=== PATIENT | female | born 1970 | race Caucasian/White ===

== ENCOUNTER 2024-04-21 15:35 | Outpatient (REF) | payer OTHER, SELFPAY ==
[2024-04-21 18:40] LABS: MANUAL DIFF FLAG NO
[2024-04-21 18:55] LABS: Basophils Percent Auto 0.1 % (0-2); Hematocrit 39.8 % (37.0-47.0); Hemoglobin 13.6 g/dl (12.0-16.0); Imm Gran Abs Auto 0.05 X10*3/uL (0.00-0.03); Imm Gran Pct Auto 0.4 % (0.0-0.4); Lymphocytes Absolute Auto 0.8 X10*3/uL (1.2-4.9); Lymphocytes Percent Auto 6.7 % (20-40); Mean Corpuscular HGB Conc 34.2 g/dl (31.0-35.0); Mean Corpuscular Hemoglobin 31.2 pg (27.0-33.0); Mean Corpuscular Volume 91.3 fL (80.0-98.0); Mean Platelet Volume 11.7 fL (9.4-12.3); Monocytes Absolute Auto 0.4 X10*3/uL (0.1-1.2); Monocytes Percent Auto 3.2 % (2-11); Neutrophils Percent Auto 89.6 % (45-73); Platelet Count 333 X10*3/uL (160-400); Red Blood Count 4.36 X10*6/uL (4.20-5.50); Red Cell Distribution Width 13.6 % (11.0-16.0); White Blood Count 12.3 X10*3/uL (4.8-10.8)
[2024-04-21 19:17] LABS: Alanine Aminotransferase 23 U/L (0-31); Albumin Level 4.9 g/dL (3.5-5.0); Alkaline Phosphatase 80 U/L (39-117); Anion Gap 19 (12-20); Aspartate Amino Transferase 21 U/L (5-31); Bilirubin Total 0.3 mg/dL (0.0-1.0); Blood Urea Nitrogen 13 mg/dL (9-16); Calcium 10.6 mg/dL (8.4-10.2); Carbon Dioxide 20 mmol/L (22-29); Chloride 105 mmol/L (96-108); Estimated Glomerular Filt Rate > 60; Glucose Random 194 mg/dL (60-115); Iron 86 mcg/dL (30-160); Percent Iron Saturation 28 % (15-50); Potassium 3.7 mmol/L (3.3-5.1); Sodium 140 mmol/L (135-145); Total Iron Binding Capacity 309 mcg/dL (228-428); Total Protein 7.8 g/dL (6.5-8.0); Unsaturated Iron Binding 223 ug/dL
[2024-04-21 19:22] LABS: Ferritin 158 ng/mL (10-250); Free T4 (Free Thyroxine) 0.98 ng/dL (0.71-1.85); Thyroid Stimulating Hormone 0.32 uIU/mL (0.32-4.0); Vitamin D 25-OH Total 48.3 ng/mL (>30)
[2024-04-21 19:36] LABS: Folate 5.8 ng/mL (> or = 4.0); Vitamin B12 193 pg/mL (200-900)
[2024-04-22 18:44] LABS: Thyroid Peroxidase Antibodies <1 IU/mL (<9)
[2024-04-27 06:32] LABS: Thyroglobulin Antibodies <1 IU/mL (< or = 1)
== END 2024-04-21 15:36 | disposition home or self-care (01) ==
LOC: HO.MANLDS 15:35
PROVIDERS: Visit Provider Internal Medicine
DX: R53.83 Other fatigue (principal); Z83.49 Family history of other endocrine, nutritional and metabolic diseases
CPT/HCPCS: 36415; 80053; 82306; 82607; 82728; 82746; 83540; 84439; 84443; 85025; 86376; 86800

== ENCOUNTER 2024-04-30 14:24 | Outpatient (REF) | payer OTHER, SELFPAY ==
[2024-04-30 17:59] LABS: Estimated Average Glucose 103 mg/dL; Hemoglobin A1c % 5.2 % (<6.0)
[2024-04-30 18:31] LABS: Vitamin B12 163 pg/mL (200-900)
== END 2024-04-30 14:25 | disposition home or self-care (01) ==
LOC: HO.MANLDS 14:24
PROVIDERS: Visit Provider Internal Medicine
DX: R73.9 Hyperglycemia, unspecified (principal)
CPT/HCPCS: 36415; 82607; 83036